=== PATIENT | female | born 1985 | race Caucasian/White ===

== ENCOUNTER 2017-08-12 03:20 | Emergency (ER) | payer OTHER ==
--- NOTE | 2017-08-12 03:57 | EDM.PDOC ---
ED HPI GENERAL MEDICAL PROBLEM - General Chief Complaint: ENT Problem Stated Complaint: CONGESTION, SORE THROAT, EYE PAIN Time Seen by Provider: 08/12/17 03:44 - History of Present Illness INITIAL COMMENTS - FREE TEXT/NARRATIVE: HISTORY AND PHYSICAL: History of present illness: The patient is a 32-year-old female who follows at [facility] with one of the providers and currently is 7 weeks and is also breast-feeding another child and presents with complaints of bilateral ear pain sore throat cough productive of phlegm nasal drainage body aches do been ongoing for the last 3-4 days. The patient was seen in our clinic here on Sunday and was tested for strep influenza and was negative and was diagnosed as viral illness and told to treat symptomatically. The patient states that today she started having redness itchiness and drainage from her left eye as well as more sinus drainage on that side. She has been hydrating and has no abdominal pain vomiting or diarrhea. She has not had a significant fever. Patient did not get her influenza shot this year Review of systems: As per history of present illness and below otherwise all systems reviewed and negative. Past medical history: As per history of present illness and as reviewed below otherwise noncontributory. Surgical history: As per history of present illness and as reviewed below otherwise noncontributory. Social history: No reported history of drug or alcohol abuse. Family history: As per history of present illness and as reviewed below otherwise noncontributory. Physical exam: Gen.: Well-developed well-nourished female who is not hoarse and does not have muffled voice but has nasal quality to voice. Vital signs are noted by me. HEENT: Atraumatic, normocephalic, pupils reactive, negative for conjunctival pallor or scleral icterus, mucous membranes moist, throat with enlarged tonsils bilaterally with punctate areas of exudate without confluence and the tonsils are not kissing, there is no cervical adenopathy or nuchal rigidity, neck supple , nontender, trachea midline. There is no discrete sinus tenderness on palpation and the nasal turbinates are not boggy. There is clear nasal drainage seen. Lungs: Clear to auscultation, breath sounds equal bilaterally, chest nontender. No work of breathing or wheezing or stridor Heart: S1S2, regular rhythm and slight tachycardia on my evaluation without murmur Abdomen: Soft, nondistended, nontender. NABS Pelvis: Deferred Genitourinary: Deferred. Rectal: Deferred. Extremities: Atraumatic, negative for cords or calf pain. Neurovascular unremarkable. Neuro: Awake, alert, oriented. Cranial nerves II through XII unremarkable. Cerebellum unremarkable. Motor and sensory unremarkable throughout. Exam nonfocal. Diagnostics: Influenza RSV Therapeutics: I discussed with the patient and significant other at bedside that as the patient is still on the first trimester and has a tent to recommend even be class drugs and that she is comfortable with that. In that case I would tell her to continue taking Tylenol for pain and body aches and use over-the- counter Benadryl or Claritin for her congestion as these are both class B drugs. I will give her tobramycin drops for her conjunctivitis. I have offered her a brief course of antibiotics for her early sinusitis but due to the early portion of this she would like to defer that at this time. I advised close follow-up with her provider at [facility] Impression: Left eye conjunctivitis, viral upper respiratory tract infection and viral pharyngitis, sinusitis Definitive disposition and diagnosis as appropriate pending reevaluation and review of above. 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: Neurological History: Reports: None - Infectious Disease History Infectious Disease History: Reports: Chicken Pox - Past Surgical History HEENT Surgical History: Reports: Oral Surgery Neurological Surgical History: Reports: Other (See Below) Other Neurological Surgeries/Procedures: lumbar puncture for [place] dse Social & Family History - Family History Family Medical History: Noncontributory - Tobacco Use Smoking Status *Q: Never Smoker Second Hand Smoke Exposure: No - Caffeine Use Caffeine Use: Reports: None - Recreational Drug Use Recreational Drug Use: No ED ROS GENERAL - Review of Systems Review Of Systems: ROS reveals no pertinent complaints other than HPI. ED EXAM, GENERAL - Physical Exam Exam: See Below (See dictation) Course - Vital Signs Last Recorded V/S: Last Vital Signs Temp 37.4 C 08/12/17 03:25 Pulse 113 H 08/12/17 03:25 Resp 18 08/12/17 03:25 BP 135/85 08/12/17 03:25 Pulse Ox 97 08/12/17 03:25 - Orders/Labs/Meds Orders: Active Orders 24 hr Category Date Time Status CULTURE STREP A CONFIRMATION [] Stat Lab 08/12/17 03:50 Results STREP SCRN A RAPID W CULT CONF [RM] Stat Lab 08/12/17 03:50 Results Departure - Departure Time of Disposition: 04:25 Disposition: Home, Self-Care 01 Condition: Good Clinical Impression: Viral pharyngitis Upper respiratory tract infection Qualifiers: URI type: unspecified URI Qualified Code(s): J06.9 - Acute upper respiratory infection, unspecified Sinusitis Qualifiers: Sinusitis location: unspecified location Chronicity: acute Recurrence: not specified as recurrent Qualified Code(s): J01.90 - Acute sinusitis, unspecified - Discharge Information Referrals: Taylor Sanchez NP [Primary Care Provider] - Forms: ED Department Discharge Additional Instructions: The following information is given to patients seen in the emergency department who are being discharged to home. This information is to outline your options for follow-up care. We provide all patients seen in our emergency department with a follow-up referral. The need for follow-up, as well as the timing and circumstances, are variable depending upon the specifics of your emergency department visit. If you don't have a primary care physician on staff, we will provide you with a referral. We always advise you to contact your personal physician following an emergency department visit to inform them of the circumstance of the visit and for follow-up with them and/or the need for any referrals to a consulting specialist. The emergency department will also refer you to a specialist when appropriate. This referral assures that you have the opportunity for followup care with a specialist. All of these measure are taken in an effort to provide you with optimal care, which includes your followup. Under all circumstances we always encourage you to contact your private physician who remains a resource for coordinating your care. When calling for followup care, please make the office aware that this follow-up is from your recent emergency room visit. If for any reason you are refused follow-up, please contact the [facility] emergency department at and ask to speak to the emergency department charge nurse. [facility] [address] [place], [place] [id number] [facility] Primary care- Internal Medicine and Family [facility] [address] [place] [id number] Please use tobramycin drops that you have been prescribed in the left eye as directed. Please use [id number] Tylenol for fevers and body aches as well as [id number] Benadryl or Claritin which are both class B drugs for your congestion as you choose. Please call and follow-up with your provider at [facility] or one of our clinic provider this week for reevaluation further care. Push hydration and rest. - My Orders Last 24 Hours: My Active Orders 08/12/17 03:50 CULTURE STREP A CONFIRMATION [RM] Stat STREP SCRN A RAPID W CULT CONF [RM] Stat - Assessment/Plan Last 24 Hours: My Active Orders 08/12/17 03:50 CULTURE STREP A CONFIRMATION [RM] Stat STREP SCRN A RAPID W CULT CONF [] Stat
== END 2017-08-12 04:40 | disposition home or self-care (01) ==
LOC: MW.ED 03:20
DX: O99.511 Diseases of the respiratory system complicating pregnancy, first trimester (principal); J02.9 Acute pharyngitis, unspecified; J01.90 Acute sinusitis, unspecified; O99.89 Other specified diseases and conditions complicating pregnancy, childbirth and the puerperium; H10.9 Unspecified conjunctivitis; Z3A.01 Less than 8 weeks gestation of pregnancy
CPT/HCPCS: 87081; 87804; 87880; 99283

== ENCOUNTER 2024-02-19 21:08 | Emergency (ER) | payer BC ==
[2024-02-19 22:01] LABS: BASOPHILS ABSOLUTE AUTO 0.05 K/uL (0.00-0.20); BASOPHILS PERCENT AUTO 0.4 % (0.0-1.0); EOSINOPHILS PERCENT AUTO 2.4 % (0.0-6.0); HEMATOCRIT 38.7 % (37.0-47.0); IMMATURE GRAN ABSOLUTE AUTO 0.05 K/uL (0.00-0.05); IMMATURE GRAN PERCENT AUTO 0.4 % (0.0-0.4); LYMPHOCYTES ABSOLUTE AUTO 2.36 K/uL (1.00-4.80); LYMPHOCYTES PERCENT AUTO 19.1 % (24.0-44.0); MEAN CORPUSCULAR HEMOGLOBIN 29.1 pg (28.0-32.0); MEAN CORPUSCULAR HGB CONC 33.6 g/dL (32.0-36.0); MEAN CORPUSCULAR VOLUME 86.6 fL (83.0-99.0); MEAN PLATELET VOLUME 10.3 fL (9.4-12.3); MONOCYTES PERCENT AUTO 4.9 % (0.0-8.0); NEUTROPHILS ABSOLUTE AUTO 9.01 K/uL (1.80-7.70); NEUTROPHILS PERCENT AUTO 72.8 % (41.0-71.0); PLATELET COUNT,PLT 219 K/uL (150-400); RED BLOOD CELL COUNT 4.47 M/uL (4.10-5.30); WHITE BLOOD CELL COUNT,WBC 12.37 K/uL (3.9-11.3)
[2024-02-19] MEDS: Ondansetron 4 MG/2 ML SDV IVPUSH ONE (22:22)
[2024-02-19] MEDS: Sodium Chloride 0.9% 10 ML Syringe FLUSH PRN (22:22)
[2024-02-19] MEDS: Sodium Chloride 0.9% 2.5 ML Syringe FLUSH PRN (22:22)
[2024-02-19 22:30] LABS: A/G RATIO 0.9 (0.9-1.6); ALANINE AMINOTRANSFERASE,ALT 15 IU/L (14-63); ALBUMIN 3.2 g/dL (3.4-5.0); ALKALINE PHOSPHATASE 60 U/L (46-116); ASPARTATE AMNIOTRANSFERASE,AST 11 IU/L (15-37); BILIRUBIN TOTAL 0.2 mg/dL (0.2-1.0); BLOOD UREA NITROGEN,BUN 10 mg/dL (7.0-18.0); CALCIUM 9.5 mg/dL (8.5-10.1); CARBON DIOXIDE,CO2 25.1 mmol/L (21.0-32.0); CHLORIDE,CL 103 mmol/L (98-107); CREATININE 0.6 mg/dL (0.6-1.0); EST CRCL DRUG DOSING (CG) 122.42 mL/min; GLUCOSE RANDOM 186 mg/dL (74-106); MAGNESIUM 1.8 mg/dL (1.8-2.4); POTASSIUM,K 3.8 mmol/L (3.5-5.1); PROTEIN TOTAL,TP 6.7 g/dL (6.4-8.2); SODIUM,NA 136 mmol/L (136-145)
[2024-02-19 22:32] LABS: ESTIMATED GFR 117 mL/min (>60)
[2024-02-19 23:24] LABS: CORONAVIRUS COVID-19 NAA NEGATIVE (NEGATIVE); INFLUENZA A NAA NEGATIVE (NEGATIVE); INFLUENZA B NAA NEGATIVE (NEGATIVE); RESPIRATORY SYNCYTIAL VIR NAA NEGATIVE (NEGATIVE)
[2024-02-19] MEDS: NIFEdipine 30 MG Tab.ER PO ONE (23:35)
[2024-02-20 01:00] LABS: APPEARANCE,URINE CLEAR; BILIRUBIN,URINE NEGATIVE (NEGATIVE); COLOR,URINE YELLOW; GLUCOSE,URINE NEGATIVE (NEGATIVE); KETONES,URINE NEGATIVE (NEGATIVE); LEUKOCYTE ESTERASE,URINE NEGATIVE (NEGATIVE); NITRITE,URINE NEGATIVE (NEGATIVE); OCCULT BLOOD,URINE NEGATIVE (NEGATIVE); PROTEIN,URINE NEGATIVE (NEGATIVE); UROBILINOGEN,URINE 0.2 EU/dL (<2.0)
== END 2024-02-19 23:55 | disposition home or self-care (01) ==
LOC: MW.ED 21:08
DX: O99.891 Other specified diseases and conditions complicating pregnancy (principal); R06.02 Shortness of breath; Z3A.11 11 weeks gestation of pregnancy; Z75.8 Other problems related to medical facilities and other health care
CPT/HCPCS: 0241U; 36415; 71046; 80053; 81003; 83735; 83880; 84484; 85025; 85379; 93005; 96374; 99285; J2405; J3490; 93010; 99284

== ENCOUNTER 2024-09-28 23:15 | Inpatient (IN) | payer BC ==
[2024-09-28] MEDS: Labetalol 100 MG/20 ML MDV IVPUSH ONE (23:47)
[2024-09-28] MEDS: Acetaminophen 325 MG Tab PO ONE (23:56)
[2024-09-28] MEDS: Magnesium Sulf/Wat 4 GM/100 mL 4 GM in Premix Bag 1 BAG IV ONE (23:56)
[2024-09-29] MEDS: diphenhydrAMINE 50 MG/ML SDV IVPUSH ONE (00:07)
[2024-09-29 00:11] LABS: BASOPHILS ABSOLUTE AUTO 0.03 K/uL (0.00-0.20); BASOPHILS PERCENT AUTO 0.3 % (0.0-1.0); EOSINOPHILS ABSOLUTE AUTO 0.33 K/uL (0.00-0.45); EOSINOPHILS PERCENT AUTO 3.2 % (0.0-6.0); HEMATOCRIT 35.3 % (37.0-47.0); HEMOGLOBIN 11.7 g/dL (12.0-16.0); IMMATURE GRAN ABSOLUTE AUTO 0.09 K/uL (0.00-0.05); IMMATURE GRAN PERCENT AUTO 0.9 % (0.0-0.4); LYMPHOCYTES ABSOLUTE AUTO 1.46 K/uL (1.00-4.80); MEAN CORPUSCULAR HEMOGLOBIN 29.3 pg (28.0-32.0); MEAN CORPUSCULAR HGB CONC 33.1 g/dL (32.0-36.0); MEAN CORPUSCULAR VOLUME 88.3 fL (83.0-99.0); MEAN PLATELET VOLUME 10.6 fL (9.4-12.3); MONOCYTES ABSOLUTE AUTO 0.32 K/uL (0.00-0.80); MONOCYTES PERCENT AUTO 3.1 % (0.0-8.0); NEUTROPHILS ABSOLUTE AUTO 8.18 K/uL (1.80-7.70); NEUTROPHILS PERCENT AUTO 78.5 % (41.0-71.0); PLATELET COUNT,PLT 264 K/uL (150-400); WHITE BLOOD CELL COUNT,WBC 10.41 K/uL (3.9-11.3)
[2024-09-29 00:19] LABS: A/G RATIO 0.8 (0.9-1.6); ALANINE AMINOTRANSFERASE,ALT 37 IU/L (14-63); ALBUMIN 3.2 g/dL (3.4-5.0); ALKALINE PHOSPHATASE 128 U/L (46-116); ASPARTATE AMNIOTRANSFERASE,AST 21 IU/L (15-37); BILIRUBIN TOTAL 0.3 mg/dL (0.2-1.0); BLOOD UREA NITROGEN,BUN 19 mg/dL (7.0-18.0); CALCIUM 8.8 mg/dL (8.5-10.1); CARBON DIOXIDE,CO2 23.4 mmol/L (21.0-32.0); CHLORIDE,CL 104 mmol/L (98-107); CREATININE 0.7 mg/dL (0.6-1.0); GLUCOSE RANDOM 139 mg/dL (74-106); POTASSIUM,K 3.9 mmol/L (3.5-5.1); PROTEIN TOTAL,TP 7.3 g/dL (6.4-8.2); SODIUM,NA 139 mmol/L (136-145)
[2024-09-29 00:24] LABS: ESTIMATED GFR 113 mL/min (>60)
[2024-09-29 00:37] LABS: INR 0.94 (0.86-1.11)
[2024-09-29 01:36] LABS: BILIRUBIN,URINE NEGATIVE (NEGATIVE); COLOR,URINE YELLOW; GLUCOSE,URINE NEGATIVE (NEGATIVE); KETONES,URINE NEGATIVE (NEGATIVE); LEUKOCYTE ESTERASE,URINE NEGATIVE (NEGATIVE); NITRITE,URINE NEGATIVE (NEGATIVE); OCCULT BLOOD,URINE LARGE (NEGATIVE); PH,URINE 5.5 (5.0-8.0); PROTEIN,URINE 30 mg/dL (NEGATIVE); UROBILINOGEN,URINE 0.2 EU/dL (<2.0)
[2024-09-29 01:38] LABS: APPEARANCE,URINE HAZY
[2024-09-29 01:46] LABS: BACTERIA,URINE FEW (NEGATIVE); EPITHELIAL CELLS,URINE RARE (NONE-FEW); MUCUS,URINE FEW (NONE-MOD)
[2024-09-29] MEDS: Furosemide 20 MG/2 ML VIAL IVPUSH ONE (01:59)
[2024-09-29] MEDS ORDERED: Sodium Chloride 0.9% 20 ML SDV IV PRN (02:59)
[2024-09-29] MEDS ORDERED: Calcium Gluconate 10% 1 GM/10 ML SDV IV PRN (02:59)
[2024-09-29] MEDS ORDERED: Sodium Chloride 0.9% 10 ML Syringe FLUSH PRN (02:59)
[2024-09-29] MEDS ORDERED: Sodium Chloride 0.9% 2.5 ML Syringe FLUSH PRN (02:59)
[2024-09-29] MEDS ORDERED: Labetalol 100 MG/20 ML MDV IVPUSH PRN (02:59)
[2024-09-29] MEDS: Magnesium Sulf/Wat 20 GM/500mL 20 GM/500 ML BAG IV SCH (03:28)
[2024-09-29] MEDS: NIFEdipine 30 MG Tab.ER PO SCH (04:18)
[2024-09-29] MEDS: Lactated Ringers 1,000 ML IV SCH (04:30)
[2024-09-29] MEDS: ceFAZolin 2 GM in Sodium Chloride 0.9% 50 ML IV ONE (05:06)
[2024-09-29 08:27] LABS: HEMATOCRIT 34.1 % (37.0-47.0); HEMOGLOBIN 11.2 g/dL (12.0-16.0); MEAN CORPUSCULAR HGB CONC 32.8 g/dL (32.0-36.0); MEAN CORPUSCULAR VOLUME 88.3 fL (83.0-99.0); MEAN PLATELET VOLUME 10.5 fL (9.4-12.3); PLATELET COUNT,PLT 261 K/uL (150-400); RED BLOOD CELL COUNT 3.86 M/uL (4.10-5.30); WHITE BLOOD CELL COUNT,WBC 9.29 K/uL (3.9-11.3)
[2024-09-29 08:59] LABS: EOSINOPHILS ABSOLUTE MAN 0.37 K/uL (0.00-0.45); EOSINOPHILS PERCENT MAN 4 % (0-6); LYMPHOCYTES ABSOLUTE MAN 1.67 K/uL (1.00-4.80); LYMPHOCYTES PERCENT MAN 18 % (24-44); MONOCYTES ABSOLUTE MAN 0.28 K/uL (0.00-0.80); MONOCYTES PERCENT MAN 3 % (0-8); SEG NEUTROPHILS ABSOLUTE MAN 6.97 K/uL (1.80-7.70); SEG NEUTROPHILS PERCENT MAN 75 % (41-71)
[2024-09-29 09:10] LABS: A/G RATIO 0.8 (0.9-1.6); BILIRUBIN TOTAL 0.3 mg/dL (0.2-1.0); CALCIUM 8.4 mg/dL (8.5-10.1); CARBON DIOXIDE,CO2 24.1 mmol/L (21.0-32.0); CREATININE 0.6 mg/dL (0.6-1.0); EST CRCL DRUG DOSING (CG) 122.42 mL/min; POTASSIUM,K 3.9 mmol/L (3.5-5.1); PROTEIN TOTAL,TP 6.7 g/dL (6.4-8.2); URIC ACID 5.3 mg/dL (2.6-7.2)
== END 2024-09-29 12:59 | DRG 561 ==
LOC: MW.ED 23:15 → MW.OB 09-29 01:59
PROVIDERS: ADMIT Obstetrics & Gynecology; ATTEND Obstetrics & Gynecology
DX: O90.89 Other complications of the puerperium, not elsewhere classified (principal); O14.15 Severe pre-eclampsia, complicating the puerperium; J81.0 Acute pulmonary edema; O99.345 Other mental disorders complicating the puerperium; J98.11 Atelectasis; O99.215 Obesity complicating the puerperium; Z79.899 Other long term (current) drug therapy; Z98.890 Other specified postprocedural states
CPT/HCPCS: 36415; 71045; 71045-26; 80053; 81001; 83735; 83880; 84550; 85007; 85025; 85027; 85610; 93005; 93306; 99284; A9270-GY; J0690; J1920; J1940; J3475; J7120